=== PATIENT | female | born 1975 | race American Indian/Alaskan Native ===

== ENCOUNTER 2021-08-14 19:42 | Inpatient (IN) | payer SELFPAY ==
[2021-08-14] MEDS ORDERED: ASPIRIN 325 MG TAB PO ONE (20:23)
--- NOTE | 2021-08-14 20:59 | XRay Report ---
CHEST 2 VIEWS INDICATION / CLINICAL INFORMATION: CHEST PAIN. COMPARISON: None available. FINDINGS: SUPPORT DEVICES: None. HEART / MEDIASTINUM: No significant abnormality. LUNGS / PLEURA: No significant pulmonary or pleural abnormality. No pneumothorax. ADDITIONAL FINDINGS: No significant additional findings. IMPRESSION: 1. No acute findings. Signer Name: Franko Lema MD Signed: 08/14/2021 8:55 PM Workstation Name: [id number]
[2021-08-14 21:13] LABS: Alanine Aminotransferase 31 units/L (7-56); Albumin 4.9 g/dL (3.9-5); Blood Urea Nitrogen 10 mg/dL (7-17); Calcium 9.1 mg/dL (8.4-10.2); Hemolysis Index 4
[2021-08-14 21:20] LABS: Hematocrit 24.8 % (30.3-42.9); Hemoglobin 7.2 gm/dl (10.1-14.3); Mean Corpuscular HGB Conc 29 % (30-34); Mean Corpuscular Volume 79 fl (79-97); Platelet Count 102 K/mm3 (140-440); Red Blood Count 3.16 M/mm3 (3.65-5.03); Red Cell Distribution Width 21.2 % (13.2-15.2)
[2021-08-14 21:21] LABS: BUN/Creatinine Ratio 17
[2021-08-14 22:06] LABS: Anisocytosis 1+; Basophils % (Manual) 0 % (0.0-1.8); Eosinophils % (Manual) 0 % (0.0-4.3); Giant Platelets Few; Hypochromasia 2+; Platelet Estimate Consistent w Auto; Target Cells Rare; Total Cells Counted 100
[2021-08-14] MEDS ORDERED: MORPHINE 2 MG/1 ML INJ IV ONE (22:46)
[2021-08-14] MEDS ORDERED: THIAMINE 100 MG, FOLIC ACID 1 MG, MULTIPLE VITAMIN INJ, ADULT 10 ML in SODIUM CHLORIDE ... IV ONE (22:46)
[2021-08-14] MEDS ORDERED: SODIUM CHLORIDE 0.9% 1000 ML 2,000 ML IV ONE (22:46)
[2021-08-14] MEDS ORDERED: PANTOPRAZOLE 40 MG INJ IV ONE (22:48)
[2021-08-14] MEDS ORDERED: ONDANSETRON 4 MG/2 ML INJ IV ONE (22:49)
--- NOTE | 2021-08-14 22:49 | Emergency Department Report ---
ED General Adult HPI - General Chief complaint: Chest Pain Stated complaint: PAIN/FAINTED ABOUT 45 MINS AGO Time Seen by Provider: 08/14/21 22:22 Source: patient Mode of arrival: Ambulatory Limitations: No Limitations - History of Present Illness Initial comments: During the history and physical examination, I am chaperoned by ER nuclear fuel processing technician Sonia The patient is a 45-year-old female. She is not , reports no period for 5 years, and has a history of tobacco and marijuana use, and occasionally alcohol consumption. She presents to the ER today with a complaint of left- sided and right-sided chest wall pain, epigastric abdominal pain, loss of consciousness, on review of systems, admits to black stool. Patient also endorses loss of consciousness a few hours ago, without head trauma, without antecedent headache Patient reports recent 6-hour road trip to [place]. Denies leg pain or leg swelling. Denies oral contraceptive use. -: Sudden Location: chest Quality: aching Consistency: constant Improves with: rest Worsens with: movement - Related Data Allergies Allergy/AdvReac Type Severity Reaction Status Date / Time No Known Allergies Allergy Verified 08/14/21 20:23 ED Review of Systems ROS: Stated complaint: PAIN/FAINTED ABOUT 45 MINS AGO Other details as noted in HPI Constitutional: malaise. denies: fever Eyes: denies: eye discharge ENT: denies: congestion Respiratory: denies: wheezing Cardiovascular: chest pain, syncope Gastrointestinal: abdominal pain, melena. denies: hematochezia Genitourinary: denies: dysuria Musculoskeletal: arthralgia, myalgia Neurological: weakness Hematological/Lymphatic: denies: easy bleeding ED Physical Exam - General Limitations: No Limitations General appearance: alert, in no apparent distress - Head Head exam: Present: atraumatic, normocephalic - Eye Eye exam: Present: normal appearance, EOMI. Absent: nystagmus - ENT ENT exam: Present: normal exam, normal orophraynx, mucous membranes dry, normal external ear exam - Neck Neck exam: Present: normal inspection, full ROM. Absent: tenderness, meningismus - Respiratory Respiratory exam: Present: normal lung sounds bilaterally, chest wall tenderness (There is reproducible chest wall tenderness). Absent: respiratory distress, wheezes, rales, rhonchi, stridor, decreased breath sounds - Cardiovascular Cardiovascular Exam: Present: normal rhythm, tachycardia, normal heart sounds. Absent: bradycardia, irregular rhythm, systolic murmur, diastolic murmur, rubs, gallop - GI/Abdominal GI/Abdominal exam: Present: soft, tenderness (There is epigastric abdominal tenderness to deep palpation). Absent: distended, guarding, rebound, rigid, pulsatile mass - Rectal Rectal exam: Present: normal inspection, normal rectal tone, bloody stool, other (Chaperoned by Jemeera) - Extremities Exam Extremities exam: Present: normal inspection, full ROM, other (2+ pulses noted in the bilateral upper and lower extremities. There is no palpable cord. negative Homans sign. Muscular compartments are soft. The pelvis is stable.). Absent: pedal edema, calf tenderness - Back Exam Back exam: Present: normal inspection, full ROM. Absent: tenderness, CVA tenderness (R), CVA tenderness (L), paraspinal tenderness, vertebral tenderness - Neurological Exam Neurological exam: Present: alert, oriented X3, normal gait, other (No facial droop. Tongue midline. Extraocular movements intact bilaterally. Facial sensation intact to light touch in V1, V2, V3 distribution bilaterally. 5 and a 5 strength in 4 extremities. Sensation intact to light touch in 4 extremities.). Absent: motor sensory deficit - Psychiatric Psychiatric exam: Present: normal affect, normal mood - Skin Skin exam: Present: warm, dry, intact, normal color. Absent: rash ED Course Vital Signs 08/14/21 20:01 Temperature 98.2 F Pulse Rate 109 H Respiratory 18 Rate Blood Pressure 121/85 O2 Sat by Pulse 100 Oximetry ED Medical Decision Making - Lab Data Result diagrams: 08/14/21 20:31 08/14/21 20:31 Vital Signs 08/14/21 20:01 Temperature 98.2 F Pulse Rate 109 H Respiratory 18 Rate Blood Pressure 121/85 O2 Sat by Pulse 100 Oximetry Lab Results 08/14/21 08/14/21 Range/Units 20:31 20:31 WBC 7.5 (4.5-11.0) K/mm3 RBC 3.16 L (3.65-5.03) M/mm3 Hgb 7.2 L (10.1-14.3) gm/dl Hct 24.8 L (30.3-42.9) % MCV 79 (79-97) fl MCH 23 L (28-32) pg MCHC 29 L (30-34) % RDW 21.2 H (13.2-15.2) % Plt Count 102 L (140-440) K/mm3 [place] % (Auto) Electrician [employer]inery Eos % (Auto) Electrician [employer]inery [place] # (Auto) [employer] Eos # (Auto) [employer] [place] # (Auto) Electric[employer] Add Manual Diff Complete Total Counted 100 Seg Neuts % (Manual) 95.0 H (40.0-70.0) % Band Neutrophils % 0 % Lymphocytes % (Manual) 3.0 L (13.4-35.0) % Reactive Lymphs % (Man) 1.0 % Monocytes % (Manual) 1.0 (0.0-7.3) % Eosinophils % (Manual) 0 (0.0-4.3) % Basophils % (Manual) 0 (0.0-1.8) % Metamyelocytes % 0 % Myelocytes % 0 % Promyelocytes % 0 % Blast Cells % 0 % Nucleated RBC % 2.0 H (0.0-0.9) % Seg Neutrophils # Electrician [employer] Seg Neutrophils # Man 7.1 (1.8-7.7) K/mm3 Band Neutrophils # 0.0 K/mm3 Lymphocytes # (Manual) 0.2 L (1.2-5.4) K/mm3 Abs React Lymphs (Man) 0.1 K/mm3 Monocytes # (Manual) 0.1 (0.0-0.8) K/mm3 Eosinophils # (Manual) 0.0 (0.0-0.4) K/mm3 Basophils # (Manual) 0.0 (0.0-0.1) K/mm3 Metamyelocytes # 0.0 K/mm3 Myelocytes # 0.0 K/mm3 Promyelocytes # 0.0 K/mm3 Blast Cells # 0.0 K/mm3 WBC Morphology Not Reportable Hypersegmented Neuts Not Reportable Hyposegmented Neuts Not Reportable Hypogranular Neuts Not Reportable Smudge Cells Not Reportable Toxic Granulation Not Reportable Toxic Vacuolation Not Reportable Dohle Bodies Not Reportable Pelger-Huet Anomaly Not Reportable Adalgisa Rods Not Reportable Platelet Estimate Consistent w auto Clumped Platelets Not Reportable Plt Clumps, EDTA Not Reportable Large Platelets Not Reportable Giant Platelets Few Platelet Satelliting Not Reportable Plt Morphology Comment Not Reportable RBC Morphology Not Reportable Dimorphic RBCs Not Reportable Polychromasia Rare Hypochromasia 2+ Poikilocytosis Not Reportable Anisocytosis 1+ Microcytosis Not Reportable Macrocytosis Not Reportable Spherocytes Not Reportable Pappenheimer Bodies Not Reportable Sickle Cells Not Reportable Target Cells Rare Tear Drop Cells Not Reportable Ovalocytes Not Reportable Helmet Cells Not Reportable [place] Bodies Not Reportable [place] Rings Not Reportable Adrienne Cells Not Reportable Bite Cells Not Reportable Crenated Cell Not Reportable Elliptocytes Not Reportable Acanthocytes (Spur) Not Reportable Rouleaux Not Reportable Hemoglobin C Crystals Not Reportable Schistocytes Not Reportable Malaria parasites Not Reportable Huang Bodies Not Reportable Hem Pathologist Commnt No Sodium 134 L (137-145) mmol/L Potassium 4.0 (3.6-5.0) mmol/L Chloride 92.6 L (98-107) mmol/L Carbon Dioxide 14 L (22-30) mmol/L Anion Gap 31 mmol/L BUN 10 (7-17) mg/dL Creatinine 0.6 (0.6-1.2) mg/dL Estimated GFR > 60 ml/min BUN/Creatinine Ratio 17 % Glucose 120 H (65-100) mg/dL Calcium 9.1 (8.4-10.2) mg/dL Total Bilirubin 0.90 (0.1-1.2) mg/dL AST 37 (5-40) units/L ALT 31 (7-56) units/L Alkaline Phosphatase 90 (35-129) units/L Troponin T < 0.010 (0.00-0.029) ng/mL Total Protein 7.3 (6.3-8.2) g/dL Albumin 4.9 (3.9-5) g/dL Albumin/Globulin Ratio 2.0 % - EKG Data -: EKG Interpreted by Nh EKG shows normal: sinus rhythm Rate: normal - EKG Data When compared to previous EKG there are: previous EKG unavailable 08/14/21 23:29 The EKG is interpreted by myself at 23: 29 Sinus rhythm, 94 bpm. Normal axis, QTC 4 6 5 ms, poor R wave progression, motion artifact. Abnormal EKG. Not a STEMI. No prior for comparison peer - Radiology Data Radiology results: pending, report reviewed, image reviewed CHEST 2 VIEWS INDICATION / CLINICAL INFORMATION: CHEST PAIN. COMPARISON: None available. FINDINGS: SUPPORT DEVICES: None. HEART / MEDIASTINUM: No significant abnormality. LUNGS / PLEURA: No significant pulmonary or pleural abnormality. No pneumothorax. ADDITIONAL FINDINGS: No significant additional findings. IMPRESSION: 1. No acute findings. Signer Name: Franko Lema MD Signed: 08/14/2021 7:55 PM Workstation Name: [id number] - Medical Decision Making Differential diagnosis, including but not limited to: Orthostasis, vagal event, structural cardiac disease, coronary artery disease, GI bleed, dehydration, costochondritis Assessment and plan: 45-year-old female, who is not menstruating, with black stool, anemia, arthritis cytopenia, with chest pain and epigastric pain, with syncopal events. She has reproducible chest wall pain. Patient not currently tachycardic, tachypneic or hypoxic. I find her to be low risk by Wells criteria for pulmonary embolism. Low risk for major adverse cardiac event as per heart score. However, given black stool, anemia, history of syncope, anion gap acidosis, I am suspicious for GI bleed. Place patient on data coordinator, start Protonix, IV fluids, and supportive medications. Have recommended admission to the medical service for the above. The patient is agreeable to this plan of care. Contacted GI physician on-call, Dr. Peguero Discussed the patient's history, physical, laboratory studies imaging studies and clinical impression. He is in agreement with the plan of care, and GI will follow in consultation. Hospital physician, Dr. Peace to admit to [facility] Hemoglobin greater than 7 at this time, will not transfuse Critical care attestation.: If time is entered above; I have spent that time in minutes in the direct care of this critically ill patient, excluding procedure time. ED Disposition Clinical Impression: Thrombocytopenia, Syncope, Metabolic acidosis, Chest wall pain, Black stools, Anemia Disposition: ADMITTED INPATIENT Is pt being admited?: Yes Does the pt Need Aspirin: No Condition: Good Instructions: Nonspecific Chest Pain, Adult, Syncope (ED) Referrals: PRIMARY CARE, [Primary Care Provider] - 3-5 Days
[2021-08-15 00:34] LABS: INR 0.97 (0.87-1.13)
[2021-08-15] MEDS ORDERED: MORPHINE 2 MG/1 ML INJ IV PRN (01:22)
[2021-08-15] MEDS ORDERED: ACETAMINOPHEN 325 MG TAB PO PRN (01:22)
[2021-08-15] MEDS ORDERED: ALBUTEROL 2.5 MG/3 ML NEBU IH PRN (01:22)
[2021-08-15] MEDS ORDERED: ONDANSETRON 4 MG/2 ML INJ IV PRN (01:22)
[2021-08-15] MEDS ORDERED: HYDROmorphone 1 MG/1 ML INJ IV PRN (01:22)
--- NOTE | 2021-08-15 01:31 | History and Physical Report ---
History of Present Illness Date of examination: 08/15/21 Date of admission: 08/15/21 Chief complaint: Chest pain Abdominal pain Black his stool History of present illness: 45-year-old female with history of tobacco and marijuana use, and occasionally alcohol consumption was brought to the emergency room because of left-sided and right-sided chest wall pain, epigastric abdominal pain, loss of consciousness, on review of systems, admits to black stool. In the emergency room patient is found to have hemoglobin of 7.2 and hematocrit 24.8, also patient bicarb is 14. So going to admit the patient I put the patient on Protonix IV fluid consult GI for evaluation we also transfused 1 unit of packed red blood cell Past History Past Medical History: other (Alcohol abuse) Past Surgical History: No surgical history Social history: smoking, alcohol abuse, other (Marijuana) Family history: no significant family history Medications and Allergies Allergies Allergy/AdvReac Type Severity Reaction Status Date / Time No Known Allergies Allergy Verified 08/14/21 20:23 Active Meds: Active Medications Acetaminophen (Acetaminophen 325 Mg Tab) 650 mg PO Q4H PRN PRN Reason: Pain MILD(1-3)/Fever >100.5/ARMENDARIZ Albuterol (Albuterol 2.5 Mg/3 Ml Nebu) 2.5 mg IH Q3HRT PRN PRN Reason: Shortness Of Breath Albuterol/Ipratropium (Ipratropium/Albuterol Sulfate 3 Ml Ampul.Neb) 1 ampul IH Q6HRT KD Hydromorphone HCl (Hydromorphone 1 Mg/1 Ml Inj) 0.5 mg IV Q3H PRN PRN Reason: Pain , Severe (7-10) Thiamine HCl 100 mg/ Folic Acid 1 mg/ Multivitamins/Minerals 10 ml/ Sodium Chloride 1,011.2 mls @ 250 mls/hr IV ONCE ONE Stop: 08/15/21 02:48 Last Admin: 08/14/21 23:43 Dose: 250 mls/hr Dextrose/Sodium Chloride (D5/0.45ns) 1,000 mls @ 125 mls/hr IV DIRECT KD Thiamine HCl 100 mg/ Folic Acid 1 mg/ Multivitamins/Minerals 10 ml/ Sodium Chloride 1,011.2 mls @ 250 mls/hr IV DAILY ONE Stop: 08/15/21 05:26 Morphine Sulfate (Morphine 2 Mg/1 Ml Inj) 2 mg IV Q4H PRN PRN Reason: Pain, Moderate (4-6) Ondansetron HCl (Ondansetron 4 Mg/2 Ml Inj) 4 mg IV Q8H PRN PRN Reason: Nausea And Vomiting Pantoprazole Sodium (Pantoprazole 40 Mg Inj) 40 mg IV BID KD Sodium Chloride (Sodium Chloride 0.9% 10 Ml Flush Syringe) 10 ml IV BID KD Sodium Chloride (Sodium Chloride 0.9% 10 Ml Flush Syringe) 10 ml IV PRN PRN PRN Reason: LINE FLUSH Review of Systems All systems: negative Cardiovascular: chest pain, other (Loss of consciousness) Gastrointestinal: abdominal pain, other (Black is) Exam - Constitutional Vitals: Temp Pulse Resp BP Pulse Ox 98.2 F 109 H 18 121/85 100 08/14/21 20:01 08/14/21 20:01 08/14/21 20:01 08/14/21 20:01 08/14/21 20:01 General appearance: Present: no acute distress, well-nourished - EENT Eyes: Present: PERRL ENT: hearing intact, clear oral mucosa - Neck Neck: Present: supple, normal ROM - Respiratory Respiratory effort: normal Respiratory: bilateral: diminished - Cardiovascular Heart Sounds: Present: S1 & S2. Absent: rub, click - Extremities Extremities: pulses symmetrical, No edema Peripheral Pulses: within normal limits - Abdominal General gastrointestinal: Present: soft, non-tender, non-distended, normal bowel sounds Female genitourinary: Present: normal - Integumentary Integumentary: Present: clear, warm, dry - Musculoskeletal Musculoskeletal: gait normal, strength equal bilaterally - Psychiatric Psychiatric: appropriate mood/affect, intact judgment & insight - Neurologic Neurologic: CNII-XII intact, moves all extremities HEART Score - HEART Score Troponin: Troponin T < 0.010 ng/mL (0.00-0.029) 08/14/21 23:31 Results - Labs CBC & Chem 7: 08/14/21 20:31 08/14/21 20:31 Labs: Laboratory Last Values WBC 7.5 K/mm3 (4.5-11.0) 08/14/21 20:31 RBC 3.16 M/mm3 (3.65-5.03) L 08/14/21 20:31 Hgb 7.2 gm/dl (10.1-14.3) L 08/14/21 20:31 Hct 24.8 % (30.3-42.9) L 08/14/21 20: MCV 79 fl (79-97) 08/14/21 20:31 MCH 23 pg (28-32) L 08/14/21 20:31 MCHC 29 % (30-34) L 08/14/21 20: RDW 21.2 % (13.2-15.2) H 08/14/21 20:31 Plt Count 102 K/mm3 (140-440) L 08/14/21 20:31 [place] % (Auto) Occupational Health Specialist 08/14/21 20:31 Eos % (Auto) Occupational Health Specialist 08/14/21 20:31 [place] # (Auto) Occupational Health Specialist 08/14/21 20:31 Eos # (Auto) Occupational Health Specialist 08/14/21 20:31 Baso # (Auto) Occupational Health Specialist 08/14/21 20:31 Add Manual Diff Complete 08/14/21 20: Total Counted 100 08/14/21 20: Seg Neuts % (Manual) 95.0 % (40.0-70.0) H 08/14/21 20:31 Band Neutrophils % 0 % 08/14/21 20:31 Lymphocytes % (Manual) 3.0 % (13.4-35.0) L 08/14/21 20:31 Reactive Lymphs % (Man) 1.0 % 08/14/21 20:31 Monocytes % (Manual) 1.0 % (0.0-7.3) 08/14/21 20:31 Eosinophils % (Manual) 0 % (0.0-4.3) 08/14/21 20:31 Basophils % (Manual) 0 % (0.0-1.8) 08/14/21 20:31 Metamyelocytes % 0 % 08/14/21 20:31 Myelocytes % 0 % 08/14/21 20:31 Promyelocytes % 0 % 08/14/21 20:31 Blast Cells % 0 % 08/14/21 20:31 Nucleated RBC % 2.0 % (0.0-0.9) H 08/14/21 20:31 Seg Neutrophils # Occupational Health Specialist 08/14/21 20:31 Seg Neutrophils # Man 7.1 K/mm3 (1.8-7.7) 08/14/21 20:31 Band Neutrophils # 0.0 K/mm3 08/14/21 20:31 Lymphocytes # (Manual) 0.2 K/mm3 (1.2-5.4) L 08/14/21 20:31 Abs React Lymphs (Man) 0.1 K/mm3 08/14/21 20:31 Monocytes # (Manual) 0.1 K/mm3 (0.0-0.8) 08/14/21 20:31 Eosinophils # (Manual) 0.0 K/mm3 (0.0-0.4) 08/14/21 20:31 Basophils # (Manual) 0.0 K/mm3 (0.0-0.1) 08/14/21 20:31 Metamyelocytes # 0.0 K/mm3 08/14/21 20:31 Myelocytes # 0.0 K/mm3 08/14/21 20:31 Promyelocytes # 0.0 K/mm3 08/14/21 20:31 Blast Cells # 0.0 K/mm3 08/14/21 20:31 WBC Morphology Not Reportable 08/14/21 20:31 Hypersegmented Neuts Not Reportable 08/14/21 20:31 Hyposegmented Neuts Not Reportable 08/14/21 20:31 Hypogranular Neuts Not Reportable 08/14/21 20:31 Smudge Cells Not Reportable 08/14/21 20:31 Toxic Granulation Not Reportable 08/14/21 20:31 Toxic Vacuolation Not Reportable 08/14/21 20:31 Dohle Bodies Not Reportable 08/14/21 20:31 Pelger-Huet Anomaly Not Reportable 08/14/21 20:31 Adalgisa Rods Not Reportable 08/14/21 20:31 Platelet Estimate Consistent w auto 08/14/21 20:31 Clumped Platelets Not Reportable 08/14/21 20:31 Plt Clumps, EDTA Not Reportable 08/14/21 20:31 Large Platelets Not Reportable 08/14/21 20:31 Giant Platelets Few 08/14/21 20:31 Platelet Satelliting Not Reportable 08/14/21 20:31 Plt Morphology Comment Not Reportable 08/14/21 20:31 RBC Morphology Not Reportable 08/14/21 20:31 Dimorphic RBCs Not Reportable 08/14/21 20:31 Polychromasia Rare 08/14/21 20:31 Hypochromasia 2+ 08/14/21 20:31 Poikilocytosis Not Reportable 08/14/21 20:31 Anisocytosis 1+ 08/14/21 20:31 Microcytosis Not Reportable 08/14/21 20:31 Macrocytosis Not Reportable 08/14/21 20:31 Spherocytes Not Reportable 08/14/21 20:31 Pappenheimer Bodies Not Reportable 08/14/21 20:31 Sickle Cells Not Reportable 08/14/21 20:31 Target Cells Rare 08/14/21 20:31 Tear Drop Cells Not Reportable 08/14/21 20:31 Ovalocytes Not Reportable 08/14/21 20:31 Helmet Cells Not Reportable 08/14/21 20:31 [place] Bodies Not Reportable 08/14/21 20:31 [place] Rings Not Reportable 08/14/21 20:31 Adrienne Cells Not Reportable 08/14/21 20:31 Bite Cells Not Reportable 08/14/21 20:31 Crenated Cell Not Reportable 08/14/21 20:31 Elliptocytes Not Reportable 08/14/21 20:31 Acanthocytes (Spur) Not Reportable 08/14/21 20:31 Rouleaux Not Reportable 08/14/21 20:31 Hemoglobin C Crystals Not Reportable 08/14/21 20:31 Schistocytes Not Reportable 08/14/21 20:31 Malaria parasites Not Reportable 08/14/21 20:31 Huang Bodies Not Reportable 08/14/21 20:31 Hem Pathologist Commnt No 08/14/21 20:31 PT 14.0 Sec. (12.2-14.9) 08/14/21 23:31 INR 0.97 (0.87-1.13) 08/14/21 23:31 Sodium 134 mmol/L (137-145) L 08/14/21 20:31 Potassium 4.0 mmol/L (3.6-5.0) 08/14/21 20:31 Chloride 92.6 mmol/L (98-107) L 08/14/21 20:31 Carbon Dioxide 14 mmol/L (22-30) L 08/14/21 20:31 Anion Gap 31 mmol/L 08/14/21 20:31 BUN 10 mg/dL (7-17) 08/14/21 20:31 Creatinine 0.6 mg/dL (0.6-1.2) 08/14/21 20:31 Estimated GFR > 60 ml/min 08/14/21 20:31 BUN/Creatinine Ratio 17 % 08/14/21 20:31 Glucose 120 mg/dL (65-100) H 08/14/21 20:31 Calcium 9.1 mg/dL (8.4-10.2) 08/14/21 20:31 Total Bilirubin 0.90 mg/dL (0.1-1.2) 08/14/21 20: AST 37 units/L (5-40) 08/14/21 20: ALT 31 units/L (7-56) 08/14/21 20: Alkaline Phosphatase 90 units/L (35-129) 08/14/21 20:31 Troponin T < 0.010 ng/mL (0.00-0.029) 08/14/21 23:31 Total Protein 7.3 g/dL (6.3-8.2) 08/14/21 20:31 Albumin 4.9 g/dL (3.9-5) 08/14/21 20:31 Albumin/Globulin Ratio 2.0 % 08/14/21 20:31 TSH 2.670 mlU/mL (0.270-4.200) 08/14/21 23:31 HCG, Quant 2.62 mIU/mL (0-4) 08/14/21 23:31 Blood Type B POSITIVE 08/14/21 23:33 Antibody Screen Negative 08/14/21 23:33 Microbiology: Microbiology 08/14/21 22:46 Stool - Stool Aspirate Stool Occult Blood (JOSÉ LUIS) - Final - Imaging and Cardiology Chest x-ray: report reviewed Assessment and Plan VTE prophylaxis?: Mechanical Plan of care discussed with patient/family: Yes - Patient Problems (1) Black stools Current Visit: Yes Status: Acute Plan to address problem: Admit the patient to the medical telemetry. NPO. Protonix 40 mg IV every 12 hours, D5 half-normal saline at the rate of 125 cc/h. Will consult GI for evaluation recheck CBC in the morning (2) Anemia Current Visit: Yes Status: Acute Plan to address problem: Transfuse 1 unit of packed red blood cell. Protonix 40 mg IV every 12 hours, Will consult GI for evaluation . recheck CBC in the morning (3) Alcohol abuse Current Visit: Yes Status: Acute Plan to address problem: We counseled the patient regarding quit drinking. We put the patient on thiamine folic acid and banana bag (4) Chest wall pain Current Visit: Yes Status: Acute Plan to address problem: Tylenol 650 p.o. every 6 hours as needed. Troponin is negative times two 0.010 (5) Metabolic acidosis Current Visit: Yes Status: Acute Plan to address problem: D5 half-normal saline at the rate of 125 cc/h. Recheck the BMP in the morning (6) Syncope Current Visit: Yes Status: Acute Plan to address problem: D5 half-normal saline at the rate of 125 cc/h. We will rehydrate the patient closely. If needed will order echocardiogram (7) Thrombocytopenia Current Visit: Yes Status: Acute Plan to address problem: Most likely secondary to alcohol abuse. We will monitor the patient closely (8) DVT prophylaxis Current Visit: Yes Status: Acute Plan to address problem: SCD for DVT prophylaxis. Protonix 40 mg IV every 12 hours for GI prophylaxis. Patient is a full code
[2021-08-15] MEDS ORDERED: SODIUM CHLORIDE 0.9% 500 ML 500 ML IV ONE (01:36)
[2021-08-15 02:11] LABS: Iron 30.08 ug/dL (37-170)
[2021-08-15] MEDS: IPRATROPIUM/ALBUTEROL SULFATE 3 ML AMPUL.NEB IH SCH ×4 (08:27→21:00)
[2021-08-15] MEDS: PANTOPRAZOLE 40 MG INJ IV SCH ×2 (09:28→22:00)
[2021-08-15] MEDS: D5W/0.45% NACL 1,000 ML IV SCH ×2 (09:28→22:59)
[2021-08-15] MEDS ORDERED: WATER FOR IRRIG STERILE 250 ML BOTTLE IR ONE (09:31)
[2021-08-15] MEDS ORDERED: EPINEPHrine 1 MG/10 ML SYRINGE ONE (09:31)
[2021-08-15] MEDS ORDERED: WATER FOR IRRIG STERILE 1,000 ML BOTTLE ONE (09:31)
[2021-08-15] MEDS ORDERED: SODIUM CHLORIDE 0.9% 1000 ML 1,000 ML ONE (09:31)
[2021-08-15 09:50] LABS: Mean Corpuscular HGB Conc 30 % (30-34); Mean Corpuscular Volume 78 fl (79-97); Red Blood Count 2.52 M/mm3 (3.65-5.03)
[2021-08-15 09:55] LABS: Hematocrit 19.6 % (30.3-42.9); Hemoglobin 5.9 gm/dl (10.1-14.3); Red Cell Distribution Width 21.7 % (13.2-15.2)
[2021-08-15 09:56] LABS: Platelet Count 78 K/mm3 (140-440)
[2021-08-15] MEDS ORDERED: SODIUM CHLORIDE 0.9% 500 ML 500 ML ONE (10:03)
[2021-08-15 10:09] LABS: Blood Urea Nitrogen 6 mg/dL (7-17); Calcium 8.3 mg/dL (8.4-10.2); Hemolysis Index 0
[2021-08-15 10:14] LABS: BUN/Creatinine Ratio 15
[2021-08-15 10:40] LABS: Basophils % (Manual) 0 % (0.0-1.8); Eosinophils % (Manual) 0 % (0.0-4.3); Total Cells Counted 100
[2021-08-15 10:41] LABS: Anisocytosis 1+; Hypochromasia 2+; Large Platelets 1+; Platelet Estimate Consistent w Auto; Target Cells 1+
--- NOTE | 2021-08-15 11:23 | Electrocardiograph Report ---
[facility] Test Date: 2021-08-14 Test Time: 20:04:15 Pat Name: BRANDON BURKS Department: Room: A265 1 Gender: F [employer] Consultant: PILAR : 1975 Requested By: ADAMA GARZA Order Number: [id number] Reading MD: Antonio Kam Measurements Intervals [place] Rate: 94 P: 75 [place]: 156 QRS: 52 QRSD: 86 T: 62 QT: 372 QTc: 465 Interpretive Statements Sinus rhythm No previous ECG available for comparison Electronically Signed On 08-15-2021 11:22:43 EDT by nAtonio Kam
--- NOTE | 2021-08-15 11:32 | Gastroenterology Consultation ---
History of Present Illness - Reason for Consult Consult date: 08/15/21 GI Bleed Requesting physician: ADAMA GARZA - History of Present Illness This pleasant 45-year-old female for whom we are consulted for GI bleed She reports occasional NSAID use when her tooth is hurting her she reports not taking excessive amounts in the last few weeks She reports she had a sudden loss of consciousness day and a half ago she reports since then having epigastric abdominal pain that is sharp stable constant no alleviating or exacerbating factors no radiation She does report dark stool x1 day Denies GI bleed in the past Does report associated nausea and vomiting with whitish sputum Denies other GI symptoms Obtained/updated/reviewed patient's current medications Past History Past Medical History: other (Alcohol abuse) Past Surgical History: No surgical history Social history: smoking, alcohol abuse, other (Marijuana) Family history: no significant family history Medications and Allergies Allergies Allergy/AdvReac Type Severity Reaction Status Date / Time No Known Allergies Allergy Verified 08/14/21 20:23 Home Medications Medication Instructions Recorded Confirmed Last Taken Type No Known Home Medications [No 08/15/21 08/15/21 Unknown History Reported Home Medications] Active Meds: Active Medications Acetaminophen (Acetaminophen 325 Mg Tab) 650 mg PO Q4H PRN PRN Reason: Pain MILD(1-3)/Fever >100.5/ARMENDARIZ Albuterol (Albuterol 2.5 Mg/3 Ml Nebu) 2.5 mg IH Q3HRT PRN PRN Reason: Shortness Of Breath Albuterol/Ipratropium (Ipratropium/Albuterol Sulfate 3 Ml Ampul.Neb) 1 ampul IH Q6HRT [facility] Last Admin: 08/15/21 08:29 Dose: 1 ampul Hydromorphone HCl (Hydromorphone 1 Mg/1 Ml Inj) 0.5 mg IV Q3H PRN PRN Reason: Pain , Severe (7-10) Dextrose/Sodium Chloride (D5/0.45ns) 1,000 mls @ 125 mls/hr IV DIRECT [facility] Last Admin: 08/15/21 09:28 Dose: 125 mls/hr Thiamine HCl 100 mg/ Folic Acid 1 mg/ Multivitamins/Minerals 10 ml/ Sodium Chloride 1,011.2 mls @ 250 mls/hr IV DAILY ONE Stop: 08/16/21 03:02 Morphine Sulfate (Morphine 2 Mg/1 Ml Inj) 2 mg IV Q4H PRN PRN Reason: Pain, Moderate (4-6) Ondansetron HCl (Ondansetron 4 Mg/2 Ml Inj) 4 mg IV Q8H PRN PRN Reason: Nausea And Vomiting Pantoprazole Sodium (Pantoprazole 40 Mg Inj) 40 mg IV BID [facility] Last Admin: 08/15/21 09:28 Dose: 40 mg Sodium Chloride (Sodium Chloride 0.9% 10 Ml Flush Syringe) 10 ml IV BID [facility] Last Admin: 08/15/21 09:29 Dose: 10 ml Sodium Chloride (Sodium Chloride 0.9% 10 Ml Flush Syringe) 10 ml IV PRN PRN PRN Reason: LINE FLUSH Review of Systems - Review of Systems All systems: negative (10 Systems reviewed and negative except as mentioned above in the history of present illness) Exam - Constitutional Vital Signs: Temp Pulse Resp BP Pulse Ox 99 F 87 13 103/73 100 08/15/21 10:30 08/15/21 11:00 08/15/21 11:00 08/15/21 11:00 08/15/21 11:00 General appearance: no acute distress - EENT Eyes: EOM intact ENT: hearing intact - Neck Neck: supple - Respiratory Respiratory effort: normal - Cardiovascular Rhythm: regular - Gastrointestinal General gastrointestinal: Present: soft, tender, normal bowel sounds (Epigastric tenderness to palpation) - Integumentary Integumentary: Present: dry - Musculoskeletal Musculoskeletal: normal - Neurologic Neurological: alert and oriented x3 - Psychiatric Psychiatric: appropriate mood/affect - Labs CBC & Chem 7: 08/15/21 09:43 08/15/21 09:43 Lab Results: Laboratory Results - last 24 hr 08/14/21 08/14/21 08/14/21 20:31 20:31 23:31 WBC 7.5 RBC 3.16 L Hgb 7.2 L Hct 24.8 L MCV 79 MCH 23 L MCHC 29 L RDW 21.2 H Plt Count 102 L [place] % (Auto) Lean Engineer Eos % (Auto) Lean Engineer [place] # (Auto) Lean Engineer Eos # (Auto) Lean Engineer Baso # (Auto) Lean Engineer Add Manual Diff Complete Total Counted 100 Seg Neuts % (Manual) 95.0 H Band Neutrophils % 0 Lymphocytes % (Manual) 3.0 L Reactive Lymphs % (Man) 1.0 Monocytes % (Manual) 1.0 Eosinophils % (Manual) 0 Basophils % (Manual) 0 Metamyelocytes % 0 Myelocytes % 0 Promyelocytes % 0 Blast Cells % 0 Nucleated RBC % 2.0 H Seg Neutrophils # Lean Engineer Seg Neutrophils # Man 7.1 Band Neutrophils # 0.0 Lymphocytes # (Manual) 0.2 L Abs React Lymphs (Man) 0.1 Monocytes # (Manual) 0.1 Eosinophils # (Manual) 0.0 Basophils # (Manual) 0.0 Metamyelocytes # 0.0 Myelocytes # 0.0 Promyelocytes # 0.0 Blast Cells # 0.0 WBC Morphology Not Reportable Hypersegmented Neuts Not Reportable Hyposegmented Neuts Not Reportable Hypogranular Neuts Not Reportable Smudge Cells Not Reportable Toxic Granulation Not Reportable Toxic Vacuolation Not Reportable Dohle Bodies Not Reportable Pelger-Huet Anomaly Not Reportable Adalgisa Rods Not Reportable Platelet Estimate Consistent w auto Clumped Platelets Not Reportable Plt Clumps, EDTA Not Reportable Large Platelets Not Reportable Giant Platelets Few Platelet Satelliting Not Reportable Plt Morphology Comment Not Reportable RBC Morphology Not Reportable Dimorphic RBCs Not Reportable Polychromasia Rare Hypochromasia 2+ Poikilocytosis Not Reportable Anisocytosis 1+ Microcytosis Not Reportable Macrocytosis Not Reportable Spherocytes Not Reportable Pappenheimer Bodies Not Reportable Sickle Cells Not Reportable Target Cells Rare Tear Drop Cells Not Reportable Ovalocytes Not Reportable Helmet Cells Not Reportable [place] Bodies Not Reportable Gay Rings Not Reportable Adrienne Cells Not Reportable Bite Cells Not Reportable Crenated Cell Not Reportable Elliptocytes Not Reportable Acanthocytes (Spur) Not Reportable Rouleaux Not Reportable Hemoglobin C Crystals Not Reportable Schistocytes Not Reportable Malaria parasites Not Reportable Huang Bodies Not Reportable Hem Pathologist Commnt No PT INR Sodium 134 L Potassium 4.0 Chloride 92.6 L Carbon Dioxide 14 L Anion Gap 31 BUN 10 Creatinine 0.6 Estimated GFR > 60 BUN/Creatinine Ratio 17 Glucose 120 H Calcium 9.1 Magnesium Iron TIBC Ferritin Total Bilirubin 0.90 AST 37 ALT 31 Alkaline Phosphatase 90 Total Creatine Kinase Troponin T < 0.010 < 0.010 Total Protein 7.3 Albumin 4.9 Albumin/Globulin Ratio 2.0 TSH HCG, Quant Blood Type Antibody Screen Crossmatch 08/14/21 08/14/21 08/14/21 23:31 23:31 23:31 WBC RBC Hgb Hct MCV MCH MCHC RDW Plt Count [place] % (Auto) Eos % (Auto) [place] # (Auto) Eos # (Auto) Baso # (Auto) Add Manual Diff Total Counted Seg Neuts % (Manual) Band Neutrophils % Lymphocytes % (Manual) Reactive Lymphs % (Man) Monocytes % (Manual) Eosinophils % (Manual) Basophils % (Manual) Metamyelocytes % Myelocytes % Promyelocytes % Blast Cells % Nucleated RBC % Seg Neutrophils # Seg Neutrophils # Man Band Neutrophils # Lymphocytes # (Manual) Abs React Lymphs (Man) Monocytes # (Manual) Eosinophils # (Manual) Basophils # (Manual) Metamyelocytes # Myelocytes # Promyelocytes # Blast Cells # WBC Morphology Hypersegmented Neuts Hyposegmented Neuts Hypogranular Neuts Smudge Cells Toxic Granulation Toxic Vacuolation Dohle Bodies Pelger-Huet Anomaly Adalgisa Rods Platelet Estimate Clumped Platelets Plt Clumps, EDTA Large Platelets Giant Platelets Platelet Satelliting Plt Morphology Comment RBC Morphology Dimorphic RBCs Polychromasia Hypochromasia Poikilocytosis Anisocytosis Microcytosis Macrocytosis Spherocytes Pappenheimer Bodies Sickle Cells Target Cells Tear Drop Cells Ovalocytes Helmet Cells [place] Bodies Gay Rings [place] Cells Bite Cells Crenated Cell Elliptocytes Acanthocytes (Spur) Rouleaux Hemoglobin C Crystals Schistocytes Malaria parasites Huang Bodies Hem Pathologist Commnt PT 14.0 INR 0.97 Sodium Potassium Chloride Carbon Dioxide Anion Gap BUN Creatinine Estimated GFR BUN/Creatinine Ratio Glucose Calcium Magnesium 1.80 Iron 30.08 L TIBC 419 Ferritin 38.1 Total Bilirubin AST ALT Alkaline Phosphatase Total Creatine Kinase 78 Troponin T Total Protein Albumin Albumin/Globulin Ratio TSH HCG, Quant Blood Type Antibody Screen Crossmatch 08/14/21 08/14/21 08/14/21 23:31 23:31 23:33 WBC RBC Hgb Hct MCV MCH MCHC RDW Plt Count [place] % (Auto) Eos % (Auto) [place] # (Auto) Eos # (Auto) Baso # (Auto) Add Manual Diff Total Counted Seg Neuts % (Manual) Band Neutrophils % Lymphocytes % (Manual) Reactive Lymphs % (Man) Monocytes % (Manual) Eosinophils % (Manual) Basophils % (Manual) Metamyelocytes % Myelocytes % Promyelocytes % Blast Cells % Nucleated RBC % Seg Neutrophils # Seg Neutrophils # Man Band Neutrophils # Lymphocytes # (Manual) Abs React Lymphs (Man) Monocytes # (Manual) Eosinophils # (Manual) Basophils # (Manual) Metamyelocytes # Myelocytes # Promyelocytes # Blast Cells # WBC Morphology Hypersegmented Neuts Hyposegmented Neuts Hypogranular Neuts Smudge Cells Toxic Granulation Toxic Vacuolation Dohle Bodies Pelger-Huet Anomaly Adalgisa Rods Platelet Estimate Clumped Platelets Plt Clumps, EDTA Large Platelets Giant Platelets Platelet Satelliting Plt Morphology Comment RBC Morphology Dimorphic RBCs Polychromasia Hypochromasia Poikilocytosis Anisocytosis Microcytosis Macrocytosis Spherocytes Pappenheimer Bodies Sickle Cells Target Cells Tear Drop Cells Ovalocytes Helmet Cells [place] Bodies Gay Rings Adrienne Cells Bite Cells Crenated Cell Elliptocytes Acanthocytes (Spur) Rouleaux Hemoglobin C Crystals Schistocytes Malaria parasites Huang Bodies Hem Pathologist Commnt PT INR Sodium Potassium Chloride Carbon Dioxide Anion Gap BUN Creatinine Estimated GFR BUN/Creatinine Ratio Glucose Calcium Magnesium Iron TIBC Ferritin Total Bilirubin AST ALT Alkaline Phosphatase Total Creatine Kinase Troponin T Total Protein Albumin Albumin/Globulin Ratio TSH 2.670 HCG, Quant 2.62 Blood Type B POSITIVE Antibody Screen Negative Crossmatch See Detail 08/15/21 08/15/21 08/15/21 02:43 09:43 09:43 WBC 4.5 RBC 2.52 L Hgb 5.9 L* Hct 19.6 L* MCV 78 L MCH 23 L MCHC 30 RDW 21.7 H Plt Count 78 L [place] % (Auto) Eos % (Auto) [place] # (Auto) Eos # (Auto) Baso # (Auto) Add Manual Diff Complete Total Counted 100 Seg Neuts % (Manual) 74.0 H Band Neutrophils % 0 Lymphocytes % (Manual) 22.0 Reactive Lymphs % (Man) 0 Monocytes % (Manual) 4.0 Eosinophils % (Manual) 0 Basophils % (Manual) 0 Metamyelocytes % 0 Myelocytes % 0 Promyelocytes % 0 Blast Cells % 0 Nucleated RBC % Not Reportable Seg Neutrophils # Seg Neutrophils # Man 3.3 Band Neutrophils # 0.0 Lymphocytes # (Manual) 1.0 L Abs React Lymphs (Man) 0.0 Monocytes # (Manual) 0.2 Eosinophils # (Manual) 0.0 Basophils # (Manual) 0.0 Metamyelocytes # 0.0 Myelocytes # 0.0 Promyelocytes # 0.0 Blast Cells # 0.0 WBC Morphology Not Reportable Hypersegmented Neuts Not Reportable Hyposegmented Neuts Not Reportable Hypogranular Neuts Not Reportable Smudge Cells Not Reportable Toxic Granulation Not Reportable Toxic Vacuolation Not Reportable Dohle Bodies Not Reportable Pelger-Huet Anomaly Not Reportable Adalgisa Rods Not Reportable Platelet Estimate Consistent w auto Clumped Platelets Not Reportable Plt Clumps, EDTA Not Reportable Large Platelets 1+ Giant Platelets Not Reportable Platelet Satelliting Not Reportable Plt Morphology Comment Not Reportable RBC Morphology Not Reportable Dimorphic RBCs Not Reportable Polychromasia Rare Hypochromasia 2+ Poikilocytosis Not Reportable Anisocytosis 1+ Microcytosis Not Reportable Macrocytosis Not Reportable Spherocytes Not Reportable Pappenheimer Bodies Not Reportable Sickle Cells Not Reportable Target Cells 1+ Tear Drop Cells Not Reportable Ovalocytes Not Reportable Helmet Cells Not Reportable [place] Bodies Not Reportable Gay Rings Not Reportable [place] Cells Not Reportable Bite Cells Not Reportable Crenated Cell Not Reportable Elliptocytes Not Reportable Acanthocytes (Spur) Not Reportable Rouleaux Not Reportable Hemoglobin C Crystals Not Reportable Schistocytes Not Reportable Malaria parasites Not Reportable Huang Bodies Not Reportable Hem Pathologist Commnt No PT INR Sodium 134 L Potassium 3.7 Chloride 98.8 Carbon Dioxide 19 L Anion Gap 20 BUN 6 L Creatinine 0.4 L Estimated GFR > 60 BUN/Creatinine Ratio 15 Glucose 79 Calcium 8.3 L Magnesium Iron TIBC Ferritin Total Bilirubin AST ALT Alkaline Phosphatase Total Creatine Kinase Troponin T < 0.010 Total Protein Albumin Albumin/Globulin Ratio TSH HCG, Quant Blood Type Antibody Screen Crossmatch Assessment and Plan Patient with severe anemia, repeat hemoglobin overnight was even lower she is getting 1 unit PRBC currently Has not differential diagnosis upper GI source such as peptic ulcer disease, severe gastritis, other etiologies such as malignancy AVM Dieulafoy less likely Patient may have underlying cirrhosis as well so variceal bleed in the differential diagnosis though less likely given lack of hematemesis Continue PPI drip we will proceed with emergent EGD given severe worsening an emia and reported melena - Patient Problems (1) Alcohol abuse Current Visit: Yes Status: Acute (2) Anemia Current Visit: Yes Status: Acute (3) Black stools Current Visit: Yes Status: Acute (4) Syncope Current Visit: Yes Status: Acute
--- NOTE | 2021-08-15 11:34 | Operative Report ---
Operative Report Operative Report: DOS: 08/15/21 SURGEON: Prince Peguero MD EGD with biopsy REPORT PREOPERATIVE DIAGNOSIS and POSTOPERATIVE DIAGNOSIS: GI bleed ESTIMATED BLOOD LOSS: minimal DESCRIPTION OF PROCEDURE: A high-resolution EGD scope was passed through the oropharynx, esophagus, stomach, and second portion of duodenum. The scope was carefully withdrawn. Retroflexion was performed in the stomach. At the end of the procedure, the scope was cleaned using normal technique. Vital signs monitored continuously throughout. SEDATION: Provided by [facility]. COMPLICATIONS: None. FINDINGS * Mild duodenitis of the entire examined duodenum with villous atrophy * Multiple superficial scattered ulcers in the gastric antrum with no high risk stigmata. Biopsies were taken to rule out H. Pylori infection. A total of 5 biopsies were taken, 2 from the antrum, 1 from the incisura, 2 from the body. * Mild to moderate gastritis of the remainder of the stomach may be consistent with mild portal hypertensive gastropathy * 4 cm hiatal hernia * Mild nonobstructing Schatzki ring at the GE junction * Remainder of exam unremarkable no esophageal varices no gastric varices RECOMMENDATIONS: Continue PPI drip for 24 hours then switch to pantoprazole 40 mg twice daily Avoid NSAIDs From GI standpoint may start patient on full liquid diet and advance as tolerated I will continue to follow with you daily
[2021-08-15] MEDS ORDERED: propofoL 200 MG/20 ML VIAL IV ONE ×2 (12:16)
--- NOTE | 2021-08-15 12:32 | Anesthesia Consultation ---
Anesthesia Consult and Med Hx Date of service: 08/15/21 - Airway Anesthetic Teeth Evaluation: Poor ROM Head & Neck: Adequate Mental/Hyoid Distance: Adequate Mallampati Class: Class III Intubation Access Assessment: Possibly Difficult - Pre-Operative Health Status ASA Pre-Surgery Classification: ASA3 Proposed Anesthetic Plan: MAC - Pulmonary Hx Smoking: Yes (1 pack per week) Hx Respiratory Symptoms: No - Cardiovascular System Hx Hypertension: No Hx Heart Attack/AMI: No - Central Nervous System CVA: No - Endocrine Hx Renal Disease: No Hx Liver Disease: No Hx Insulin Dependent Diabetes: No Hx Non-Insulin Dependent Diabetes: No Hx Thyroid Disease: No - Hematic Hx Anemia: Yes (pRBCs transfusing) - Other Systems Hx Obesity: No - Additional Comments Anesthesia Medical History Comments: No hx anesthetic complications. EGD for suspected GI bleed.
--- NOTE | 2021-08-15 12:32 | Anesthesia Day of Surgery ---
Anesthesia Day of Surgery - Day of Surgery Patient Examined: Yes Patient H&P Reviewed: Yes Patient is NPO: Yes
--- NOTE | 2021-08-15 13:20 | Post Anesthesia Evaluation ---
- Post Anesthesia Evaluation Patient Participated: Yes Airway Patent: Yes Stable Respiratory Function: Yes Nausea/Vomiting: No Temp > 96.8F: Yes Pain Manageable: Yes Adequeate Hydration: Yes Anesthesia Complications: No
[2021-08-15] MEDS ORDERED: LORazepam 2 MG/ML VIAL IV PRN ×2 (13:29)
--- NOTE | 2021-08-15 13:37 | Event Note ---
Date: 08/15/21 Patient seen and examined, awaiting Endoscopy, counselling provided for 15 mins about ETOH cessation. Will start CIWA protocol. Check repeat H/H Following Transfusion, patient does not show any evidence of withdrawal symptoms at this time. Prolonged clinical service provided 35 minutes with greater than 50% spent in counseling. Hemoglobin is 5.9 following repeat H&H we will see if patient will benefit from further transfusion.
[2021-08-15 15:23] LABS: Hematocrit 24.9 % (30.3-42.9); Hemoglobin 7.8 gm/dl (10.1-14.3)
[2021-08-15] MEDS ORDERED: MAGNESIUM SULFATE 2 GM/50 ML BAG IV ONE (17:31)
[2021-08-15] MEDS ORDERED: THIAMINE 100 MG, FOLIC ACID 1 MG, MULTIPLE VITAMIN INJ, ADULT 10 ML in SODIUM CHLORIDE ... IV ONE (23:00)
[2021-08-16] MEDS: IPRATROPIUM/ALBUTEROL SULFATE 3 ML AMPUL.NEB IH SCH ×2 (02:08→08:55)
[2021-08-16 05:19] LABS: Basophils % (Auto) 0.7 % (0.0-1.8); Eosinophils % (Auto) 0.5 % (0.0-4.3); Hematocrit 24.6 % (30.3-42.9); Hemoglobin 7.7 gm/dl (10.1-14.3); Lymphocytes # (Auto) 0.6 K/mm3 (1.2-5.4); Lymphocytes % (Auto) 15.7 % (13.4-35.0); Mean Corpuscular HGB Conc 31 % (30-34); Mean Corpuscular Volume 78 fl (79-97); Monocytes # (Auto) 0.3 K/mm3 (0.0-0.8); Monocytes % (Auto) 6.6 % (0.0-7.3); Red Blood Count 3.14 M/mm3 (3.65-5.03)
[2021-08-16 05:22] LABS: Platelet Count 78 K/mm3 (140-440); Red Cell Distribution Width 20.4 % (13.2-15.2)
[2021-08-16 05:36] LABS: BUN/Creatinine Ratio 5; Blood Urea Nitrogen 2 mg/dL (7-17); Calcium 7.6 mg/dL (8.4-10.2); Hemolysis Index 0
[2021-08-16] MEDS ORDERED: POTASSIUM CHLORIDE ER 20 MEQ TAB PO SCH (08:00)
[2021-08-16] MEDS: PANTOPRAZOLE 40 MG INJ IV SCH (09:48)
[2021-08-16 10:17] VITALS: BP 121/82
--- NOTE | 2021-08-16 10:26 | Gastroenterology Progress Note ---
Assessment and Plan Anemia due to upper GI bleed from gastric ulcers Continue pantoprazole 40 mg twice daily Avoid NSAIDs From GI perspective patient is doing much better and is fully stabilized low risk for rebleed so she may be discharged on pantoprazole 40 mg twice daily with outpatient follow-up with me in the office - Patient Problems (1) Alcohol abuse Current Visit: Yes Status: Acute (2) Anemia Current Visit: Yes Status: Acute (3) Black stools Current Visit: Yes Status: Acute (4) Syncope Current Visit: Yes Status: Acute Subjective Date of service: 08/16/21 Principal diagnosis: GI Bleed Interval history: Patient reports no current abdominal pain no bowel movements tolerating diet feeling okay Objective - Constitutional Vitals: Temp Pulse Resp BP Pulse Ox 98.7 F 91 H 13 121/82 100 08/16/21 08:00 08/16/21 10:11 08/16/21 10:11 08/16/21 10:11 08/16/21 10:11 General appearance: no acute distress - EENT Eyes: EOM intact - Neck Neck: supple - Respiratory Respiratory effort: normal - Cardiovascular Rhythm: regular - Gastrointestinal General gastrointestinal: Present: soft, non-tender - Integumentary Integumentary: Present: dry - Neurologic Neurological: alert and oriented x3 - Psychiatric Psychiatric: appropriate mood/affect - Labs CBC & Chem 7: 08/16/21 04:51 08/16/21 04:51 Labs: Laboratory Results - last 24 hr 08/14/21 08/15/21 08/15/21 23:33 09:43 11:22 WBC RBC Hgb Hct MCV MCH MCHC RDW Plt Count Lymph % (Auto) [place] % (Auto) Eos % (Auto) Baso % (Auto) Lymph # (Auto) [place] # (Auto) Eos # (Auto) Baso # (Auto) Add Manual Diff Complete Total Counted 100 Seg Neutrophils % Seg Neuts % (Manual) 74.0 H Band Neutrophils % 0 Lymphocytes % (Manual) 22.0 Reactive Lymphs % (Man) 0 Monocytes % (Manual) 4.0 Eosinophils % (Manual) 0 Basophils % (Manual) 0 Metamyelocytes % 0 Myelocytes % 0 Promyelocytes % 0 Blast Cells % 0 Nucleated RBC % Not Reportable Seg Neutrophils # Seg Neutrophils # Man 3.3 Band Neutrophils # 0.0 Lymphocytes # (Manual) 1.0 L Abs React Lymphs (Man) 0.0 Monocytes # (Manual) 0.2 Eosinophils # (Manual) 0.0 Basophils # (Manual) 0.0 Metamyelocytes # 0.0 Myelocytes # 0.0 Promyelocytes # 0.0 Blast Cells # 0.0 WBC Morphology Not Reportable Hypersegmented Neuts Not Reportable Hyposegmented Neuts Not Reportable Hypogranular Neuts Not Reportable Smudge Cells Not Reportable Toxic Granulation Not Reportable Toxic Vacuolation Not Reportable Dohle Bodies Not Reportable Pelger-Huet Anomaly Not Reportable Adalgisa Rods Not Reportable Platelet Estimate Consistent w auto Clumped Platelets Not Reportable Plt Clumps, EDTA Not Reportable Large Platelets 1+ Giant Platelets Not Reportable Platelet Satelliting Not Reportable Plt Morphology Comment Not Reportable RBC Morphology Not Reportable Dimorphic RBCs Not Reportable Polychromasia Rare Hypochromasia 2+ Poikilocytosis Not Reportable Anisocytosis 1+ Microcytosis Not Reportable Macrocytosis Not Reportable Spherocytes Not Reportable Pappenheimer Bodies Not Reportable Sickle Cells Not Reportable Target Cells 1+ Tear Drop Cells Not Reportable Ovalocytes Not Reportable Helmet Cells Not Reportable [place] Bodies Not Reportable [place] Rings Not Reportable Adrienne Cells Not Reportable Bite Cells Not Reportable Crenated Cell Not Reportable Elliptocytes Not Reportable Acanthocytes (Spur) Not Reportable Rouleaux Not Reportable Hemoglobin C Crystals Not Reportable Schistocytes Not Reportable Malaria parasites Not Reportable Huang Bodies Not Reportable Hem Pathologist Commnt No Sodium Potassium Chloride Carbon Dioxide Anion Gap BUN Creatinine Estimated GFR BUN/Creatinine Ratio Glucose POC Glucose 75 Calcium Magnesium Crossmatch See Detail 08/15/21 08/15/21 08/16/21 15:00 15:00 04:51 WBC 4.1 L RBC 3.14 L Hgb 7.8 L 7.7 L Hct 24.9 L 24.6 L MCV 78 L MCH 25 L MCHC 31 RDW 20.4 H Plt Count 78 L Lymph % (Auto) 15.7 [place] % (Auto) 6.6 Eos % (Auto) 0.5 Baso % (Auto) 0.7 Lymph # (Auto) 0.6 L [place] # (Auto) 0.3 Eos # (Auto) 0.0 Baso # (Auto) 0.0 Add Manual Diff Total Counted Seg Neutrophils % 76.5 H Seg Neuts % (Manual) Band Neutrophils % Lymphocytes % (Manual) Reactive Lymphs % (Man) Monocytes % (Manual) Eosinophils % (Manual) Basophils % (Manual) Metamyelocytes % Myelocytes % Promyelocytes % Blast Cells % Nucleated RBC % Seg Neutrophils # 3.1 Seg Neutrophils # Man Band Neutrophils # Lymphocytes # (Manual) Abs React Lymphs (Man) Monocytes # (Manual) Eosinophils # (Manual) Basophils # (Manual) Metamyelocytes # Myelocytes # Promyelocytes # Blast Cells # WBC Morphology Hypersegmented Neuts Hyposegmented Neuts Hypogranular Neuts Smudge Cells Toxic Granulation Toxic Vacuolation Dohle Bodies Pelger-Huet Anomaly Adalgisa Rods Platelet Estimate Clumped Platelets Plt Clumps, EDTA Large Platelets Giant Platelets Platelet Satelliting Plt Morphology Comment RBC Morphology Dimorphic RBCs Polychromasia Hypochromasia Poikilocytosis Anisocytosis Microcytosis Macrocytosis Spherocytes Pappenheimer Bodies Sickle Cells Target Cells Tear Drop Cells Ovalocytes Helmet Cells [place] Bodies [place] Rings Adrienne Cells Bite Cells Crenated Cell Elliptocytes Acanthocytes (Spur) Rouleaux Hemoglobin C Crystals Schistocytes Malaria parasites Huang Bodies Hem Pathologist Commnt Sodium Potassium Chloride Carbon Dioxide Anion Gap BUN Creatinine Estimated GFR BUN/Creatinine Ratio Glucose POC Glucose Calcium Magnesium 1.50 L Crossmatch 08/16/21 04:51 WBC RBC Hgb Hct MCV MCH MCHC RDW Plt Count Lymph % (Auto) [place] % (Auto) Eos % (Auto) Baso % (Auto) Lymph # (Auto) [place] # (Auto) Eos # (Auto) Baso # (Auto) Add Manual Diff Total Counted Seg Neutrophils % Seg Neuts % (Manual) Band Neutrophils % Lymphocytes % (Manual) Reactive Lymphs % (Man) Monocytes % (Manual) Eosinophils % (Manual) Basophils % (Manual) Metamyelocytes % Myelocytes % Promyelocytes % Blast Cells % Nucleated RBC % Seg Neutrophils # Seg Neutrophils # Man Band Neutrophils # Lymphocytes # (Manual) Abs React Lymphs (Man) Monocytes # (Manual) Eosinophils # (Manual) Basophils # (Manual) Metamyelocytes # Myelocytes # Promyelocytes # Blast Cells # WBC Morphology Hypersegmented Neuts Hyposegmented Neuts Hypogranular Neuts Smudge Cells Toxic Granulation Toxic Vacuolation Dohle Bodies Pelger-Huet Anomaly Adalgisa Rods Platelet Estimate Clumped Platelets Plt Clumps, EDTA Large Platelets Giant Platelets Platelet Satelliting Plt Morphology Comment RBC Morphology Dimorphic RBCs Polychromasia Hypochromasia Poikilocytosis Anisocytosis Microcytosis Macrocytosis Spherocytes Pappenheimer Bodies Sickle Cells Target Cells Tear Drop Cells Ovalocytes Helmet Cells [place] Bodies [place] Rings [place] Cells Bite Cells Crenated Cell Elliptocytes Acanthocytes (Spur) Rouleaux Hemoglobin C Crystals Schistocytes Malaria parasites Huang Bodies Hem Pathologist Commnt Sodium 136 L Potassium 3.5 L Chloride 101.0 Carbon Dioxide 23 Anion Gap 16 BUN 2 L Creatinine 0.4 L Estimated GFR > 60 BUN/Creatinine Ratio 5 Glucose 122 H POC Glucose Calcium 7.6 L Magnesium Crossmatch
--- NOTE | 2021-08-16 10:59 | Discharge Summary ---
Providers - Providers Date of Admission: 08/15/21 03:51 Attending physician: DAWN QUIÑONEZ MD 08/14/21 22:45 Consult to Physician [CONS] Urgent Comment: Dr. Leggett spoke with Dr. Mantilla @ 1526 Consulting Provider: JUAN WOODARD Physician Instructions: Reason For Exam: ugib Primary care physician: BERENICE FRANCIS Hospitalization Reason for admission: Syncope Condition: Good Hospital course: 45-year-old female with history of tobacco and marijuana use, and occasionally alcohol consumption was brought to the emergency room because of left-sided and right-sided chest wall pain, epigastric abdominal pain, loss of consciousness, on review of systems, admits to black stool. In the emergency room patient is found to have hemoglobin of 7.2 and hematocrit 24.8, also patient bicarb is 14. So going to admit the patient I put the patient on Protonix IV fluid consult GI for evaluation we also transfused 1 unit of packed red blood cell Patient on admission was noted to have acute blood loss anemia which was symptomatic admitted to the syncopal episode. She underwent endoscopy with findings of gastric bleeding ulcers. This was managed and no further rebleed was noted she tolerated diet. She has been discharged on pantoprazole 40 mg twice daily I did have extensive discussion with her about quitting alcohol and also tobacco she verbalized understanding she understands how this contributes to the gastric ulcers. She will follow with the GI doctor on outpatient basis in a week. Time spent on counseling 15 minutes. She will also follow-up with her primary care physician Anemia due to upper GI bleed from gastric ulcers Acute blood loss anemia secondary to gastric ulcer disease Gastric ulcer disease EtOH abuse Autonomic dysfunction secondary to acute blood loss anemia Tobacco use disorder Metabolic acidosis Atypical chest wall pain secondary to costochondritis from fall Thrombocytopenia likely as a result of bone marrow dysfunction from EtOH use Disposition: HOME / SELF CARE / HOMELESS Final Discharge Diagnosis (Prints w/discharge instructions): Acute blood loss anemia secondary to gastric ulcer disease. Gastric ulcer disease. EtOH abuse. Autonomic dysfunction secondary to acute blood loss anemia. Tobacco use disorder. Metabolic acidosis. Atypical chest wall pain secondary to costochondritis from fall. 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 GENERAL: The patient appears normally developed, Vital signs as documented. HEAD: No signs of head trauma. EYES: Pupils are equal. Extraocular motions intact. EARS: Hearing grossly intact. MOUTH: Oropharynx is normal. NECK: No adenopathy, no JVD. CHEST: Chest with clear breath sounds bilaterally. No wheezes, rales, or rhonchi. CARDIAC: Regular rate and rhythm. S1 and S2, without murmurs, gallops, or rubs. VASCULAR: No Edema. Peripheral pulses normal and equal in all extremities. ABDOMEN: Soft, non tender and non distended. No rebound or guarding, and no masses palpated. Bowel Sounds normal. MUSCULOSKELETAL: Good range of motion of all major joints. Extremities without clubbing, cyanosis or edema. NEUROLOGIC EXAM: Alert and oriented x 3 No focal sensory or strength deficits. Speech normal. Follows commands. PSYCHIATRIC: Mood normal. SKIN: detail exam as documented in skin assessment - Constitutional Vitals: Temp Pulse Resp BP Pulse Ox 98.7 F 91 H 13 121/82 100 08/16/21 08:00 08/16/21 10:11 08/16/21 10:11 08/16/21 10:11 08/16/21 10:11 Plan Activity: advance as tolerated, fall precautions Diet: low fat Special Instructions: record daily BP diary, smoking cessation, other (must quit etoh use) Follow up with: [facility] [Provider Group] - 7 Days MELISSA MANTILLA MD [Staff Physician] - 7 Days Prescriptions: Folic Acid 1 mg PO DAILY #30 tab Multivitamin [Multiple Vitamins] 1 each PO DAILY #30 tab Pantoprazole [Protonix TAB] 40 mg PO BID #60 tablet Thiamine HCl [Vitamin B-1] 100 mg PO DAILY #30 tab
== END 2021-08-16 11:42 | disposition home or self-care (01) | DRG 378 ==
LOC: ED 19:42 → IMCU 08-15 03:51
PROVIDERS: ADMIT Hospitalist; ATTEND Internal Medicine
PROC: 0DB68ZX Excision of Stomach, Via Natural or Artificial Opening Endoscopic, Diagnostic (ICD-10-PCS; principal; 2021-08-15)
PROC: 30233N1 Transfusion of Nonautologous Red Blood Cells into Peripheral Vein, Percutaneous Approach (ICD-10-PCS; 2021-08-15)
DX: K25.4 Chronic or unspecified gastric ulcer with hemorrhage (principal); E87.2 Acidosis; D62 Acute posthemorrhagic anemia; K92.1 Melena; R55 Syncope and collapse; D69.6 Thrombocytopenia, unspecified; R10.9 Unspecified abdominal pain; D64.9 Anemia, unspecified; F10.10 Alcohol abuse, uncomplicated; G90.8 Other disorders of autonomic nervous system; M94.0 Chondrocostal junction syndrome [Tietze]; K29.80 Duodenitis without bleeding; K29.70 Gastritis, unspecified, without bleeding
CPT/HCPCS: 36415; 71046; 80048; 80053; 82270; 82550; 82728; 82962; 83550; 83735; 84443; 84484; 84702; 85007; 85014; 85018; 85025; 85610; 86850; 86900; 86901; 86920; 88305; 88342; 93005; 94640; 96366; 96375; 99285; 99406; G0378; J3490; J7070; C9113; J0171; J2270; J2405; J2704; J3411; J3475; J7030; J7040; P9016